=== PATIENT | male | born 1960 | race Caucasian/White ===

== ENCOUNTER 2017-12-04 13:14 | Day surgery (SDC) | payer OTHER ==
[~2017-12-04 13:14] MED LIST: DEXAMETHASONE 4 MG/ML 1 ML INJ; GLYCOPYRROLATE 0.4 MG INJ; LIDOCAINE 2% (SDV) 5 ML INJ; NEOSTIGMINE 3 MG/3 ML SYRINGE; ONDANSETRON 4 MG INJ; ROCURONIUM 50 MG INJ
[2017-12-04] MEDS ORDERED: LIDOCAINE 1% (MPF) 30 ML INJ (14:36)
[2017-12-04] MEDS ORDERED: BUPIVACAINE 0.5% (SDV) 30 ML INJ (14:36)
[2017-12-04] MEDS ORDERED: POLYMYXIN/BACITRACIN 1L IRRIG (14:37)
[2017-12-04] MEDS ORDERED: ROCURONIUM 50 MG INJ (14:38)
[2017-12-04] MEDS ORDERED: MIDAZOLAM 1 MG/ML 2 ML INJ (14:38)
[2017-12-04] MEDS ORDERED: ROPIVACAINE 0.5 % 30 ML VIAL (14:38)
[2017-12-04] MEDS ORDERED: PROPOFOL 20 ML (14:38)
[2017-12-04] MEDS ORDERED: CEFAZOLIN 1 GM INJ (14:42)
[2017-12-04] MEDS ORDERED: FENTAnyl 50 MCG/ML VIAL (16:32)
[2017-12-04] MEDS ORDERED: KETOROLAC 30 MG INJ IV (17:30)
[2017-12-04] MEDS ORDERED: FENTAnyl 50 MCG/ML VIAL IV ×3 (17:30)
[2017-12-04] MEDS ORDERED: ONDANSETRON 4 MG INJ IV (17:30)
[2017-12-04] MEDS ORDERED: LABETALOL HCL 20MG INJ IV (17:30)
[2017-12-04] MEDS ORDERED: MEPERIDINE 25 MG INJ IV (17:30)
[2017-12-04] MEDS ORDERED: ALBUTEROL 0.083% (NEB) 2.5 MG/3 ML AMP HHN (17:30)
[2017-12-04] MEDS ORDERED: DIPHENHYDRAMINE 50 MG INJ IV (17:30)
[2017-12-04] MEDS ORDERED: hydrALAzine 20 MG INJ IV (17:30)
[2017-12-04] MEDS ORDERED: EPHEDrine SULFATE 50 MG/5 ML SYG IV (17:30)
[2017-12-04] MEDS ORDERED: OXYCODONE/ACETAMINOPHEN (5/325) TAB PO ×2 (17:30)
[2017-12-04] MEDS ORDERED: HYDROmorphONE 1 MG/5 ML IV SYRINGE IV ×3 (17:30)
[2017-12-04] MEDS ORDERED: MIDAZOLAM 1 MG/ML 2 ML INJ IV (17:30)
== END 2017-12-04 19:11 | disposition home or self-care (01) ==
LOC: SDS 13:14
DX: S52.572P Other intraarticular fracture of lower end of left radius, subsequent encounter for closed fracture with malunion (principal); X58.XXXD Exposure to other specified factors, subsequent encounter; G56.02 Carpal tunnel syndrome, left upper limb
CPT/HCPCS: 25400; 73110-LT